=== PATIENT | male | born 1970 | race Caucasian/White ===

== ENCOUNTER 2021-02-14 21:36 | Emergency (ER) | payer MEDICAID ==
[~2021-02-14] VITALS: Ht 167.6 cm; Wt 68.0 kg
[2021-02-14 21:29] VITALS: BP 142/61
--- NOTE | 2021-02-14 21:40 | NUR ---
PT AAOX4. AMBULATORY WITH STEADY GAIT. BIBRA C/O SUICIDAL WITH NO PLAN, -HI. ALSO, HEARING VOICES TELLING HIM TO KILL HIMSELF. PLACED IN A GOWN, ON MONITOR, AND PULSE OX. SITTER AT BEDSIDE.
[2021-02-14 21:57] LABS: BASOPHILS # (AUTO) 0.1 K/uL (0.0-0.2); BASOPHILS % (AUTO) 1.9 % (0.0-2.0); EOSINOPHILS % (AUTO) 1.5 % (0.0-6.0); HEMATOCRIT 37 % (39-51); HEMOGLOBIN 12.3 g/dL (13.5-17.5); LYMPHOCYTES # (AUTO) 3.4 K/uL (0.8-4.8); LYMPHOCYTES % (AUTO) 44.8 % (20.0-44.0); MEAN CORPUSCULAR HGB CONC 34 g/dl (31.0-36.0); MEAN CORPUSCULAR VOLUME 87 fL (80-96); MONOCYTES # (AUTO) 0.5 K/uL (0.1-1.30); MONOCYTES % (AUTO) 6.7 % (2.0-12.0); NEUTROPHILS # (AUTO) 3.4 K/uL (1.8-8.9); NEUTROPHILS % (AUTO) 45.1 % (43.0-81.0); PLATELET COUNT (AUTO) 121 K/uL (150-450); RED BLOOD CELL COUNT(AUTO) 4.19 MIL/uL (4.5-6.0); WHITE BLOOD COUNT (AUTO) 7.6 K/uL (4.3-11.0)
--- NOTE | 2021-02-14 22:09 | NUR ---
AMBULATED TO THE RESTROOM, AWAITING URINE SAMPLE.
--- NOTE | 2021-02-14 22:09 | NUR ---
ROMAINEID SWABBED, SENT TO LAB.
[2021-02-14 22:10] LABS: ALANINE AMINOTRANSFERASE 139 U/L (12-78); ALBUMIN 3.7 g/dL (3.4-5.0); ALCOHOL, BLOOD < 3 mg/dL (0-0); ALKALINE PHOSPHATASE 97 U/L (46-116); ASPARTATE AMINOTRANSFERASE 65 U/L (15-37); BILIRUBIN,DIRECT 0.2 mg/dL (0.0-0.2); BILIRUBIN,TOTAL 0.6 mg/dL (0.2-1.0); CALCIUM, SERUM 8.8 mg/dL (8.5-10.1); CARBON DIOXIDE 29 mmol/L (21-32); CHLORIDE 106 mmol/L (98-107); CREATININE 0.7 mg/dL (0.6-1.3); GLUCOSE 101 mg/dL (74-106); POTASSIUM 3.6 mmol/L (3.5-5.1); SODIUM SERUM 143 mmol/L (136-145); TOTAL PROTEIN, SERUM 8.1 g/dL (6.4-8.2); UREA NITROGEN, BLOOD 25 mg/dL (7-18)
[2021-02-14 22:16] LABS: ACETAMINOPHEN < 2 ug/ml (10-30)
[2021-02-14 22:29] LABS: BILIRUBIN,URINE Negative (NEGATIVE); COLOR,URINE YELLOW (YELLOW); LEUKOCYTE ESTERASE ,URINE Negative (NEGATIVE); NITRITE, URINE Negative (NEGATIVE); PROTEIN,URINE Negative (NEGATIVE); UGLUCOSE Negative (NEGATIVE); UROBILINOGEN,URINE 0.2 EU/dL (0.2)
--- NOTE | 2021-02-15 02:23 | NUR ---
[facility] UNIT [address] BRYANT
--- NOTE | 2021-02-15 02:25 | NUR ---
[facility] ETA 60-90 MIN
--- NOTE | 2021-02-15 02:47 | NUR ---
REPORT GIVEN TO EMT, PT TRANSFERED TO [facility]
--- NOTE | 2021-02-15 02:47 | NUR ---
REPORT GIVEN TO BRIT ANDERSON FOR [facility]
== END 2021-02-15 02:55 ==
LOC: EDBD 21:36 → ER 21:36
DX: R45.851 Suicidal ideations (principal); F20.0 Paranoid schizophrenia; Z91.14 Patient's other noncompliance with medication regimen; Z20.822 Contact with and (suspected) exposure to COVID-19; I10 Essential (primary) hypertension; D64.9 Anemia, unspecified; R74.01 Elevation of levels of liver transaminase levels
CPT/HCPCS: 36415; 80048; 80076; 80143; 80307; 80320; 81003; 85025; 87426; 99285; C9803; G0480

== ENCOUNTER 2021-02-21 20:10 | Emergency (ER) | payer MEDICAID ==
[~2021-02-21] VITALS: Ht 185.4 cm; Wt 63.5 kg
--- NOTE | 2021-02-21 20:40 | NUR ---
PT AAOX4. AMBULATORY WITH STEADY GAIT. BIBRA [id number] FROM [facility] C/O SI WITH PLAN TO HANG SELF. -HI. PLACED IN GOWN, ON MONITOR, AND PULSE OX. SITTER AT BEDSIDE.
[2021-02-21 20:59] LABS: BILIRUBIN,URINE Negative (NEGATIVE); COLOR,URINE DARK YELLOW (YELLOW); LEUKOCYTE ESTERASE ,URINE Negative (NEGATIVE); NITRITE, URINE Negative (NEGATIVE); PROTEIN,URINE Negative (NEGATIVE); UGLUCOSE Negative (NEGATIVE); UROBILINOGEN,URINE 0.2 EU/dL (0.2)
--- NOTE | 2021-02-21 21:01 | NUR ---
ROMAINEID SWABBED, SENT TO LAB.
[2021-02-21 21:12] LABS: BASOPHILS % (AUTO) 0.4 % (0.0-2.0); HEMOGLOBIN 13.2 g/dL (13.5-17.5); MONOCYTES # (AUTO) 0.5 K/uL (0.1-1.30); NEUTROPHILS # (AUTO) 1.8 K/uL (1.8-8.9)
[2021-02-21 21:19] LABS: CALCIUM, SERUM 8.7 mg/dL (8.5-10.1); CARBON DIOXIDE 31 mmol/L (21-32); CHLORIDE 105 mmol/L (98-107); CREATININE 0.7 mg/dL (0.6-1.3); GLUCOSE 86 mg/dL (74-106); POTASSIUM 4.2 mmol/L (3.5-5.1); SODIUM SERUM 140 mmol/L (136-145); UREA NITROGEN, BLOOD 24 mg/dL (7-18)
[2021-02-21 21:23] LABS: HEMATOCRIT 39 % (39-51); LYMPHOCYTES # (AUTO) 4.5 K/uL (0.8-4.8); LYMPHOCYTES % (AUTO) 64.5 % (20.0-44.0); MEAN CORPUSCULAR HGB CONC 34 g/dl (31.0-36.0); MEAN CORPUSCULAR VOLUME 87 fL (80-96); NEUTROPHILS % (AUTO) 26.1 % (43.0-81.0); PLATELET COUNT (AUTO) 112 K/uL (150-450); RED BLOOD CELL COUNT(AUTO) 4.47 MIL/uL (4.5-6.0)
[2021-02-21 21:31] LABS: ALANINE AMINOTRANSFERASE 234 U/L (12-78); ALBUMIN 3.8 g/dL (3.4-5.0); ALCOHOL, BLOOD < 3 mg/dL (0-0); ALKALINE PHOSPHATASE 105 U/L (46-116); ASPARTATE AMINOTRANSFERASE 141 U/L (15-37); BILIRUBIN,DIRECT 0.2 mg/dL (0.0-0.2); BILIRUBIN,TOTAL 0.5 mg/dL (0.2-1.0); TOTAL PROTEIN, SERUM 8.3 g/dL (6.4-8.2)
[2021-02-21 21:33] LABS: BACTERIA,URINE Rare /HPF (None Seen); SQUAMOUS EPITHELIAL CELL,UR 0-2 /HPF (None Seen); WBC,URINE 0-2 /HPF (0-3)
[2021-02-21 21:34] LABS: ACETAMINOPHEN < 10 ug/ml (10-30)
[2021-02-21 22:52] LABS: BAND % (MANUAL) 2 % (0.0-5.0); EOSINOPHILS % (MANUAL) 1 % (0-4); LYMPHOCYTES % (MANUAL) 60 % (16-48); MONOCYTES % (MANUAL) 9 % (0-11.0); NEUTROPHILS % (MANUAL) 28 (42-76)
[2021-02-22] MEDS ORDERED: OLANZAPINE 10 MG VIAL IM ONE ×2 (01:47→02:00)
[2021-02-22] MEDS ORDERED: OLANZAPINE 5 MG TABLET ONE (01:53)
[2021-02-22] MEDS ORDERED: OLANZAPINE 5 MG TABLET PO ONE (02:00)
--- NOTE | 2021-02-22 03:15 | NUR ---
TRANSFER INFORMATION: PT ACCETED AT [facility] PHONE NUMBER FOR REPORT EXT [phone] ACCEPTING MD AND ROOM NUMBER WILL BE PROVIDED DURING REPORT.
--- NOTE | 2021-02-22 03:25 | NUR ---
REPORT CALLED TO [facility]. ACCEPTING MD LOCO. PT WILL GO TO [address] WILL CALL FOR TRANSPORT.
--- NOTE | 2021-02-22 03:29 | NUR ---
[facility] ETA 60MIN.
[2021-02-22 04:44] VITALS: BP 127/82
--- NOTE | 2021-02-22 04:44 | NUR ---
TRANSPORT AT [facility] REPORT GIVEN TO EMT.
== END 2021-02-22 04:45 ==
LOC: ER 20:11
DX: R45.851 Suicidal ideations (principal); R74.01 Elevation of levels of liver transaminase levels; Z59.0 Homelessness; F25.1 Schizoaffective disorder, depressive type; I10 Essential (primary) hypertension; Z20.822 Contact with and (suspected) exposure to COVID-19
CPT/HCPCS: 36415; 80048; 80076; 80143; 80307; 80320; 81001; 85007; 85025; 87426; 99285; C9803; J3490; G0480